=== PATIENT | female | born 1990 | race African-American/Black ===

== ENCOUNTER 2016-11-05 23:58 | Emergency (ER) | payer SELFPAY ==
[~2016-11-05 23:58] MED LIST: N-ACETYL-L-CYS600 MG; NO MEDICATIONS
== END 2016-11-06 02:40 | disposition home or self-care (01) ==
LOC: CED 23:58
DX: O99.512 Diseases of the respiratory system complicating pregnancy, second trimester (principal); J02.9 Acute pharyngitis, unspecified; Z3A.27 27 weeks gestation of pregnancy; Z79.899 Other long term (current) drug therapy; Z88.6 Allergy status to analgesic agent; Z88.8 Allergy status to other drugs, medicaments and biological substances
CPT/HCPCS: 87651; 99283